=== PATIENT | male | born 1990 | race Caucasian/White ===

== ENCOUNTER 2016-10-17 21:40 | Emergency (ER) | payer SELFPAY ==
--- NOTE | 2016-10-17 21:52 | EDM.PDOC ---
ED HPI GENERAL MEDICAL PROBLEM - General Chief Complaint: Bite:Animal, Insect Stated Complaint: cat bite Time Seen by Provider: 10/17/16 21:45 Source of Information: Reports: Patient History Limitations: Reports: No Limitations - History of Present Illness INITIAL COMMENTS - FREE TEXT/NARRATIVE: Stray kitten was found in a garbage can and was startled by patient's dog. Kitten bit his left index finger, scratching his right index finger. Last tetanus 13-14 years ago. Kitten is now in his parents garage. No other complaints. Onset: Today, Sudden Onset Time: 21:00 Location: Reports: Upper Extremity, Left, Upper Extremity, Right Quality: Reports: Ache Severity: Mild Improves with: Reports: None Worsens with: Reports: None Associated Symptoms: Reports: No Other Symptoms - Related Data Allergies Allergy/AdvReac Type Severity Reaction Status Date / Time No Known Allergies Allergy Verified 10/17/16 21:51 Home Meds: Home Meds . [No Known Home Meds] 10/17/16 [History] ED ROS GENERAL - Review of Systems Review Of Systems: See Below Constitutional: Reports: No Symptoms HEENT: Reports: No Symptoms Respiratory: Reports: No Symptoms Cardiovascular: Reports: No Symptoms Endocrine: Reports: No Symptoms GI/Abdominal: Reports: No Symptoms : Reports: No Symptoms Musculoskeletal: Reports: Hand Pain (left index finger throbs) Skin: Reports: No Symptoms ED EXAM, ANIMAL BITE - Physical Exam Exam: See Below General Appearance: Alert, WD/WN, No Apparent Distress Extremities: Normal Inspection, Normal Range of Motion, Non-Tender, No Pedal Edema, Normal Capillary Refill Skin Exam: Normal Color, Warm/Dry, Other (two puncture melendez on left distal index finger, scratches evident on exam to the right index finger) Course - Re-Assessments/Exams Free Text/Narrative Re-Assessment/Exam: 10/17/16 22:31 police department notified of cat bite. [place] [employer] did come to the ED. Cat is contained at their house. They will be calling the vet in the morning for further recommended testing Departure - Departure Time of Disposition: 22:33 Disposition: Home, Self-Care 01 Condition: Good Clinical Impression: Cat bite of finger - Discharge Information Instructions: Animal Bite, Yhpd-oh-Book, VIS, Rabies - CDC Additional Instructions: You did get your first dose of antibiotic. Please fill the remaining doses at the pharmacy tomorrow. You will be taking augmentin twice daily for 1 week Keep the bite wound clean and dry. Cats are well known for dirty bites and infections that result from their bites You do need to observe the cat for up to 10 days to be sure it does not have any signs of rabies If at anytime during that 10 day interval the cat shows signs of rabies contamination, you need to be seen for rabies prophylaxis as soon as possible Follow up at the clinic with any other symptoms from this animal encounter Please call with any questions or concerns - Problem List & Annotations (1) Cat bite of finger SNOMED Code(s): 257796055 Code(s): S61.259A - OPEN BITE OF UNSP FINGER WITHOUT DAMAGE TO NAIL, INIT ENCNTR; W55.01XA - BITTEN BY CAT, INITIAL ENCOUNTER Status: Acute Priority: Low Current Visit: Yes Qualifiers: Encounter type: initial encounter Qualified Code(s): S61.259A - Open bite of unspecified finger without damage to nail, initial encounter; W55.01XA - Bitten by cat, initial encounter - Problem List Review Problem List Initiated/Reviewed/Updated: Yes - Assessment/Plan Assessment:: cat bite, left index finger Plan: You did get your first dose of antibiotic. Please fill the remaining doses at the pharmacy tomorrow. You will be taking augmentin twice daily for 1 week Keep the bite wound clean and dry. Cats are well known for dirty bites and infections that result from their bites You do need to observe the cat for up to 10 days to be sure it does not have any signs of rabies If at anytime during that 10 day interval the cat shows signs of rabies contamination, you need to be seen for rabies prophylaxis as soon as possible Follow up at the clinic with any other symptoms from this animal encounter Please call with any questions or concerns
[2016-10-17] MEDS ORDERED: Amoxicillin/Clavulanate K 875-125 MG Tab PO ONE (21:56)
[2016-10-17] MEDS ORDERED: Diphtheria,Pertussis(Acell),Tetanus Vaccine 0.5 ML Syringe IM ONE (21:57)
[2016-10-17 22:26] VITALS: BP 137/91
== END 2016-10-17 22:39 | disposition home or self-care (01) ==
LOC: VM.ED 21:40
DX: S61.251A Open bite of left index finger without damage to nail, initial encounter (principal); S60.410A Abrasion of right index finger, initial encounter; Z23 Encounter for immunization; W55.01XA Bitten by cat, initial encounter; Y92.59 Other trade areas as the place of occurrence of the external cause
CPT/HCPCS: 90471; 90715; 99283; A9270

== ENCOUNTER 2016-10-25 12:58 | Emergency (ER) | payer SELFPAY ==
[2016-10-25] MEDS ORDERED: Rabies Vaccine (Avian) 2.5 Unit Inj Kit IM ONE (13:25)
[2016-10-25 13:52] VITALS: BP 182/97
--- NOTE | 2016-10-25 14:00 | EDM.PDOC ---
ED HPI GENERAL MEDICAL PROBLEM - General Chief Complaint: Bite:Animal, Insect Stated Complaint: RABIEs SHOTS Time Seen by Provider: 10/25/16 13:15 Source of Information: Reports: Patient, Old Records History Limitations: Reports: No Limitations - History of Present Illness INITIAL COMMENTS - FREE TEXT/NARRATIVE: Patient was seen for a cat bite index finger eight days ago in this ER. He ws advised to keep the cat confined for ten days and watch it. Patient advised us this morning that the cat . He had been acting fine but was found today. Onset Date: 10/17/16 Onset Time: 08:00 Duration: Day(s): Location: Reports: Other (left index finger) Quality: Reports: Other (no symptoms in the finger) Improves with: Reports: None Worsens with: Reports: None Associated Symptoms: Reports: No Other Symptoms - Related Data Allergies Allergy/AdvReac Type Severity Reaction Status Date / Time No Known Allergies Allergy Verified 10/25/16 13:28 Home Meds: Home Meds . [No Known Home Meds] 10/17/16 [History] Past Medical History - Past Health History Medical/Surgical History: Denies Medical/Surgical History Social & Family History - Tobacco Use Smoking Status *Q: Current Every Day Smoker Years of Tobacco use: 14 Packs/Tins Daily: 1.5 - Alcohol Use Days Per Week of Alcohol Use: 2 Number of Drinks Per Day: 2 Total Drinks Per Week: 4 - Recreational Drug Use Recreational Drug Use: No ED ROS GENERAL - Review of Systems Review Of Systems: ROS reveals no pertinent complaints other than HPI. Constitutional: Reports: No Symptoms HEENT: Reports: No Symptoms Respiratory: Reports: No Symptoms Cardiovascular: Reports: No Symptoms Endocrine: Reports: No Symptoms GI/Abdominal: Reports: No Symptoms : Reports: No Symptoms Musculoskeletal: Reports: No Symptoms Skin: Reports: No Symptoms Neurological: Reports: No Symptoms Psychiatric: Reports: No Symptoms Hematologic/Lymphatic: Reports: No Symptoms Immunologic: Reports: No Symptoms ED EXAM, ANIMAL BITE - Physical Exam Exam: See Below Exam Limited By: No Limitations General Appearance: Alert, WD/WN, No Apparent Distress Eye Exam: Bilateral Eye: EOMI, PERRL Ears: Normal External Exam, Normal Canal, Hearing Grossly Normal, Normal TMs Nose: Normal Inspection, Normal Mucosa, No Blood Throat/Mouth: Normal Inspection, Normal Lips, Normal Teeth, Normal Gums, Normal Oropharynx, Normal Voice, No Airway Compromise Head: Atraumatic, Normocephalic Neck: Normal Inspection, Supple, Non-Tender, Full Range of Motion Respiratory/Chest: No Respiratory Distress, Lungs Clear, Normal Breath Sounds, No Accessory Muscle Use, Chest Non-Tender Cardiovascular: Normal Peripheral Pulses, Regular Rate, Rhythm, No Edema, No Gallop, No JVD, No Murmur, No Rub Peripheral Pulses: 4+: Radial (L), Radial (R) GI/Abdominal: Normal Bowel Sounds (Male) Exam: Deferred Rectal (Males) Exam: Deferred Back Exam: Normal Inspection Extremities: Normal Inspection, Non-Tender, Other (left index finger shows a healed small bite on distal end without evidence of infection.) Neurological: Alert, Oriented, CN II-XII Intact, Normal Cognition, Normal Gait, Normal Reflexes, No Motor/Sensory Deficits Psychiatric: Normal Affect, Normal Mood Skin Exam: Warm/Dry, DRY, I, Normal Color, NR Lymphadenopathy: Bilateral: No Adenopathy Lymphatic: No Adenopathy Course - Vital Signs Last Recorded V/S: Last Vital Signs Temp 37.1 C 10/25/16 13:00 Pulse 112 H 10/25/16 13:00 Resp 16 10/25/16 13:00 BP 182/97 H 10/25/16 13:00 Pulse Ox 97 10/25/16 13:00 - Orders/Labs/Meds Orders: Active Orders 24 hr Category Date Time Status Vaccines to be Administered [RC] PER UNIT ROUTINE Care 10/25/16 13:25 Active Meds: Medications Discontinued Medications Generic Name Dose Route Start Last Admin Trade Name Janiq PRN Reason Stop Dose Admin Rabies Vaccine 2.5 unit 10/25/16 13:25 10/25/16 13:45 Rabavert IM 10/25/16 13:26 2.5 unit .ONCE ONE Administration - Re-Assessments/Exams Free Text/Narrative Re-Assessment/Exam: 10/25/16 14:03 Patient was examined and RabVert rabies vaccine was ordered. 1st dose will be given today and subsequent doses as on outpatient order sheet. Patient will also be given a weight based dose of rabies immune globulin as soon as it is available, likely tomorrow. This was all discussed in detail with the patient and he voiced understanding. Departure - Departure Time of Disposition: 14:06 Disposition: Home, Self-Care 01 Condition: Good Clinical Impression: Cat bite of finger Qualifiers: Encounter type: subsequent encounter Qualified Code(s): S61.259D - Open bite of unspecified finger without damage to nail, subsequent encounter; W55.01XD - Bitten by cat, subsequent encounter - Discharge Information Referrals: PCP,None [Primary Care Provider] - Additional Instructions: Please come in for additional rabies injections according to this schedule. 5 pm tomorrow 10/26/16, 5 PM on 10/28/16, 5 PM on 11/01/16 and 5 PM on 11/08/16. - My Orders Last 24 Hours: My Active Orders 10/25/16 13:25 Vaccines to be Administered [RC] PER UNIT ROUTINE - Assessment/Plan Last 24 Hours: My Active Orders 10/25/16 13:25 Vaccines to be Administered [RC] PER UNIT ROUTINE
== END 2016-10-25 14:15 | disposition home or self-care (01) ==
LOC: VM.ED 12:58
DX: S61.251D Open bite of left index finger without damage to nail, subsequent encounter (principal); F17.210 Nicotine dependence, cigarettes, uncomplicated; W55.01XD Bitten by cat, subsequent encounter
CPT/HCPCS: 90675; 96372; 99283; 99283-GF

== ENCOUNTER 2018-10-01 18:16 | Emergency (ER) | payer BC, OTHER ==
[2018-10-01 20:04] VITALS: BP 155/101; PULSE 104
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
== END 2018-10-01 18:46 | disposition home or self-care (01) ==
LOC: VM.ED 18:16 → SUPCPDRO 18:16 → VM.ED 18:46
DX: T26.52XA Corrosion of left eyelid and periocular area, initial encounter (principal); F17.210 Nicotine dependence, cigarettes, uncomplicated
CPT/HCPCS: 99282

== ENCOUNTER 2020-07-27 03:00 | Emergency (ER) | payer BC, OTHER ==
[2020-07-27] MEDS ORDERED: Sodium Chloride 0.9% 10 ML Syringe FLUSH PRN (03:21)
[2020-07-27] MEDS ORDERED: fentaNYL 100 MCG/2 ML SDV IVPUSH ONE (03:25)
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
[2020-07-27 03:52] LABS: CHLORIDE,CL 101 mmol/L (98-107); SODIUM,NA 140 mmol/L (136-145)
[2020-07-27 03:53] LABS: ANION GAP 20.6 mmol/L (5-15)
[2020-07-27] MEDS ORDERED: Take Home: Acetaminophen/oxyCODONE 325-5 MG, 5 Tab Pack PO ONE (04:11)
[2020-07-27 04:28] VITALS: BP 98/40; PULSE 110
--- NOTE | 2020-07-27 08:32 | CT ---
[id number] CT/CT Head WO IV EXAM: CT Head WO IV CLINICAL DATA: TRAUMA COMPARISON: No previous similar exam is available for comparison. FINDINGS: There is no mass or mass effect. There is no hemorrhage or hydrocephalus. There are no extra-axial fluid collections. There are no sites of abnormal attenuation. IMPRESSION: NO PLAIN CT EVIDENCE OF ACUTE INTRACRANIAL PROCESS. Clovis Mauro MD 07/27/20 0831 Thank you for allowing us to participate in the care of your patient.
--- NOTE | 2020-07-27 08:33 | CR ---
[id number] RAD/RAD Ribs Right W PA Chest Exam: RAD Ribs Right W PA Chest Clinical Data: TRAUMA COMPARISON: NO PREVIOUS SIMILAR EXAM IS AVAILABLE FINDINGS: There are nondisplaced fractures involving the lateral sixth and seventh ribs The lungs are clear There is no pneumothorax The cardiac silhouette is normal IMPRESSION: NONDISPLACED LATERAL RIGHT SIXTH AND SEVENTH RIB FRACTURES Clovis Mauro MD 07/27/20 0832 Thank you for allowing us to participate in the care of your patient.
== END 2020-07-27 04:54 | disposition home or self-care (01) ==
LOC: VM.ED 03:00
DX: S22.41XA Multiple fractures of ribs, right side, initial encounter for closed fracture (principal); S00.01XA Abrasion of scalp, initial encounter; S10.91XA Abrasion of unspecified part of neck, initial encounter; F10.129 Alcohol abuse with intoxication, unspecified; R79.89 Other specified abnormal findings of blood chemistry; W18.09XA Striking against other object with subsequent fall, initial encounter
CPT/HCPCS: 70450; 71101-RT; 80053; 80307; 82150; 83690; 85025; 96374; 99284; 99284-25; A9270-GY; J3010

== ENCOUNTER 2021-11-29 16:17 | Emergency (ER) | payer SELFPAY ==
[2021-11-29] MEDS ORDERED: Lidocaine 1% 30 ML SDV INJECT ONE (16:34)
[2021-11-29 16:39] VITALS: BP 148/95
[2021-11-29 17:23] VITALS: PULSE 112
== END 2021-11-29 17:04 | disposition home or self-care (01) ==
LOC: VM.ED 16:17
DX: S61.216A Laceration without foreign body of right little finger without damage to nail, initial encounter (principal); I10 Essential (primary) hypertension; Z72.0 Tobacco use; Z79.899 Other long term (current) drug therapy; W25.XXXA Contact with sharp glass, initial encounter; Y93.G1 Activity, food preparation and clean up
CPT/HCPCS: 12001; 99282; 99283